=== PATIENT | male | born 1975 | race African-American/Black ===

== ENCOUNTER 2021-03-30 13:09 | Emergency (ER) | payer OTHER ==
[~2021-03-30] VITALS: Ht 177.8 cm; Wt 104.3 kg
[2021-03-30 13:56] LABS: ABSOLUTE NEUTROPHILS 3.7 thou/uL (1.4-8.2); BASOPHILS 0.7 % (0.0-2.0); EOSINOPHILS 1.1 % (0.0-3.0); HEMATOCRIT 51.5 % (42.0-52.0); HEMOGLOBIN 16.9 gm/dL (14.0-18.0); LYMPHOCYTES 18.7 % (24.0-44.0); MCH 29.2 pg (26.0-34.0); MCHC 32.8 g/dL (28.0-37.0); MCV 89.3 fL (80.0-100.0); MONOCYTES 10.3 % (1.0-8.0); PLATELET COUNT 221 thou/uL (150-400); POLYS 69.2 % (36.0-66.0); RBC 5.76 mil/uL (4.50-6.00); RDW 13.6 % (10.5-14.5); WBC 5.3 thou/uL (4.0-11.0)
[2021-03-30 14:06] LABS: CALCIUM 8.7 mg/dL (8.5-10.1); CREATININE 1.3 mg/dL (0.7-1.3); POTASSIUM 4.2 mmol/L (3.5-5.1)
[2021-03-30 14:13] LABS: ALBUMIN 3.8 g/dL (3.4-5.0); TOTAL BILIRUBIN 0.4 mg/dL (0.2-1.0); TOTAL PROTEIN 7.7 g/dL (6.4-8.2)
[2021-03-30 14:48] LABS: APTT 27.6 Seconds (24.5-32.8); INR 0.96; PROTIME 10.5 Seconds (10.5-12.1)
[2021-03-30] MEDS ORDERED: AZITHROMYCIN 2250 MG PO ×2 (14:56→15:55)
[2021-03-30] MEDS ORDERED: PROAIR HFA8.5 GM INH ×2 (14:56→17:33)
[2021-03-30 15:13] VITALS: BP 145/99
--- NOTE | 2021-04-01 07:59 | EKG ---
[address] [address] ELECTROCARDIOGRAM REPORT Name: DUPREEGEOVANI Room #: DEP SONYA Sauceda#: [id number] Admission: 03/30/21 Attend Phys: Discharge: 03/30/21 Date of : 71 Report #: [id number] [facility] ED Test Date: 2021-03-30 Test Time: 14:01:16 Pat Name: GEOVANI DUPREE Department: Room: Gender: Portrait [employer] Photographer: sonya : 1975 Requested By: Jerod Gregory Order Number: [id number] MD: Gerardo Prather Measurements Intervals [place] Rate: 103 P: 46 AK: 143 QRS: 8 QRSD: 88 T: 22 QT: 346 QTc: 453 Interpretive Statements Sinus tachycardia Otherwise no significant abnormality No previous ECG available for comparison Electronically Signed On 04-01-2021 7:59:16 CDT by Gerardo Prather [email or web address] <ELECTRONICALLY SIGNED> By: Gerardo Prather MD, [facility] 04/01/21 0759 1401 1401 Gerardo Prather MD, FACC /EPI
== END 2021-03-30 15:15 | disposition home or self-care (01) ==
LOC: ER 13:09
PROVIDERS: Emergency Medicine
DX: J18.9 Pneumonia, unspecified organism (principal); Z20.822 Contact with and (suspected) exposure to COVID-19; R06.00 Dyspnea, unspecified; I10 Essential (primary) hypertension; F12.90 Cannabis use, unspecified, uncomplicated